=== PATIENT | male | born 1990 | race Caucasian/White ===

== ENCOUNTER 2023-08-11 08:21 | Emergency (ER) | payer SELFPAY ==
[~2023-08-11] VITALS: Ht 195.6 cm; Wt 77.1 kg
[2023-08-11 08:21] VITALS: BP_SYST 135; PULSE 74; RESP 18; TEMP 97.9; O2SAT 99
[2023-08-11] MEDS ORDERED: ceFAZolin SODIUM 1 GM VIAL ONE (08:52)
[2023-08-11 08:59] LABS: BASOPHILS # (AUTO) 0.1 K/uL (0.0-0.2); BASOPHILS % (AUTO) 0.6 % (0.0-2.0); EOSINOPHILS # (AUTO) 0.4 K/uL (0.0-0.4); EOSINOPHILS % (AUTO) 4.3 % (0.0-4.0); LYMPHOCYTES # (AUTO) 2.7 K/uL (1.0-5.5); LYMPHOCYTES % (AUTO) 26.6 % (20.5-51.5); MEAN CORPUSCULAR HEMOGLOBIN 32 pg (27-31); MEAN CORPUSCULAR HGB CONC 34 % (32-36); MEAN CORPUSCULAR VOLUME 93 fL (79.0-98.0); MONOCYTES # (AUTO) 0.6 K/uL (0.0-1.0); MONOCYTES % (AUTO) 6.4 % (1.7-9.3); NEUTROPHILS # (AUTO) 6.2 K/uL (1.8-7.7); NEUTROPHILS % (AUTO) 62.1 % (40.0-70.0); PLATELET COUNT (AUTO) 335 K/uL (130-430); RED BLOOD CELL COUNT(AUTO) 4.75 MIL/uL (4.2-6.2); RED CELL DISTRIBUTION WIDTH 13.4 % (9.0-15.0)
[2023-08-11] MEDS: DIPHTH,PERTUSS(ACELL),TET VAC 0.5 ML VIAL (Tdap) I.M. ONE (09:06)
[2023-08-11] MEDS: NACL 0.9% 1,000 ML IV ONE (09:07)
[2023-08-11] MEDS: MORPHINE 4 MG INJ. 4 MG/ML VIAL IVP ONE (09:08)
[2023-08-11] MEDS: ONDANSETRON HCL 4 MG/2 ML VIAL IVP ONE (09:08)
[2023-08-11] MEDS: ceFAZolin SODIUM 1 GM in D5W 50 ML IV ONE (09:09)
[2023-08-11 09:14] LABS: INR 1.1 (0.80-1.20); PROTHROMBIN TIME 11.6 SECS (9.5-12.5)
[2023-08-11 09:25] LABS: ALBUMIN 4.1 g/dL (3.4-4.8); BILIRUBIN,DIRECT 0.1 mg/dL (0.0-0.3); CALCIUM 8.8 mg/dL (8.4-11.0); CREATININE 1.03 mg/dL (0.55-1.30); POTASSIUM 3.7 mmol/L (3.5-5.1); TOTAL BILIRUBIN 0.7 mg/dL (0.0-1.0); TOTAL PROTEIN, SERUM 7.7 g/dL (6.4-8.3)
[2023-08-11] MEDS ORDERED: IBUP-1969 PO (10:23)
[2023-08-11] MEDS ORDERED: HYDR-3917 PO (10:23)
[2023-08-11] MEDS ORDERED: CEPH-548 PO (10:24)
[2023-08-11 10:35] VITALS: BP_SYST 140; PULSE 70; RESP 21; TEMP 97.5; O2SAT 98
== END 2023-08-11 10:35 | disposition home or self-care (01) ==
LOC: SED 08:21
DX: S62.502B Fracture of unspecified phalanx of left thumb, initial encounter for open fracture (principal); Z23 Encounter for immunization; F17.200 Nicotine dependence, unspecified, uncomplicated; F12.90 Cannabis use, unspecified, uncomplicated; F10.90 Alcohol use, unspecified, uncomplicated; Z79.899 Other long term (current) drug therapy; Z79.2 Long term (current) use of antibiotics; W26.2XXA Contact with edge of stiff paper, initial encounter; W45.8XXA Other foreign body or object entering through skin, initial encounter; Y93.89 Activity, other specified; Y92.89 Other specified places as the place of occurrence of the external cause; Y99.8 Other external cause status
CPT/HCPCS: 99284; 96365; 96375; 80076; 80048; 85025; 85610; 85730; 86886; 86900; 86901; 36415; 73130; 90715; 90471; 12001; J0690; J2405; J2270